=== PATIENT | male | born 1960 | race Caucasian/White ===

== ENCOUNTER 2023-07-21 20:42 | Emergency (ER) | payer MEDICARE ==
[~2023-07-21] VITALS: Ht 175.3 cm; Wt 73.0 kg
[2023-07-21 20:55] VITALS: O2SAT 98
[2023-07-22] MEDS ORDERED: ACETAMINOPHEN 325MG TABLET PO ONE
[2023-07-22] MEDS ORDERED: CYCLOBENZAPRINE 10MG TABLET PO ONE
[2023-07-22] MEDS ORDERED: NAPR-1176 MT (01:20)
[2023-07-22] MEDS ORDERED: LIDO700A15 TP (01:20)
[2023-07-22 01:35] VITALS: BP 155/89; PULSE 51; RESP 18; TEMP 98.7
== END 2023-07-22 01:39 | disposition home or self-care (01) ==
LOC: ER 20:42
DX: S32.038A Other fracture of third lumbar vertebra, initial encounter for closed fracture (principal); S32.048A Other fracture of fourth lumbar vertebra, initial encounter for closed fracture; I10 Essential (primary) hypertension; Z98.890 Other specified postprocedural states; Z88.8 Allergy status to other drugs, medicaments and biological substances; W18.39XA Other fall on same level, initial encounter; Y93.89 Activity, other specified; Y92.89 Other specified places as the place of occurrence of the external cause; Y99.8 Other external cause status
CPT/HCPCS: 72131; 99284